=== PATIENT | male | born 1975 | race Caucasian/White ===

== ENCOUNTER 2017-10-22 15:39 | Emergency (ER) | payer MEDICAID ==
[~2017-10-22] VITALS: Ht 185.4 cm; Wt 80.0 kg
[2017-10-22 15:43] VITALS: BP 124/79
== END 2017-10-22 17:00 | disposition home or self-care (01) ==
LOC: ER 15:40
DX: T17.208A Unspecified foreign body in pharynx causing other injury, initial encounter (principal); X58.XXXA Exposure to other specified factors, initial encounter; Y93.89 Activity, other specified; Y92.89 Other specified places as the place of occurrence of the external cause; Y99.8 Other external cause status
CPT/HCPCS: 99283

== ENCOUNTER 2019-04-10 12:54 | Emergency (ER) | payer MEDICAID ==
[~2019-04-10] VITALS: Ht 185.4 cm; Wt 81.8 kg
[2019-04-10] MEDS ORDERED: methylPREDNISolone sod succ 125mg/2ml vial IM ONE (13:05)
[2019-04-10] MEDS ORDERED: METH4TAB3 PO (13:06)
[2019-04-10 13:28] VITALS: BP 137/100
== END 2019-04-10 13:33 | disposition home or self-care (01) ==
LOC: ER 12:54
DX: L23.7 Allergic contact dermatitis due to plants, except food (principal)
CPT/HCPCS: 96372; 99283; J2930

== ENCOUNTER 2019-04-12 13:55 | Emergency (ER) | payer MEDICAID ==
[~2019-04-12] VITALS: Ht 185.4 cm; Wt 84.0 kg
[~2019-04-12 13:55] MED LIST: METH4TAB3 PO
[2019-04-12 14:29] VITALS: BP 118/83
[2019-04-12] MEDS ORDERED: HYDR28CR14 TOP (15:13)
== END 2019-04-12 15:28 | disposition home or self-care (01) ==
LOC: ER 13:56
DX: L23.7 Allergic contact dermatitis due to plants, except food (principal); Z79.899 Other long term (current) drug therapy
CPT/HCPCS: 99282